=== PATIENT | male | born 1965 | race Caucasian/White ===

== ENCOUNTER 2021-09-24 17:05 | Emergency (ER) | payer BC ==
[~2021-09-24] VITALS: Ht 193 cm; Wt 113.4 kg
[2021-09-24] MEDS ORDERED: TOBRAMYCIN 5 ML5 M1 OPH (19:06)
== END 2021-09-24 19:15 | disposition home or self-care (01) ==
LOC: ED 17:05
DX: H16.9 Unspecified keratitis (principal)